=== PATIENT | female | born 1940 | race Two or more races ===

== ENCOUNTER → 2021-05-12 18:45 | Outpatient (CLI) | payer MEDICARE ==
[2021-05-12 19:21] LABS: EOSINOPHILS 9.5 % (0-7); HEMATOCRIT 34.1 % (36.0-48.0); HEMOGLOBIN 10.1 g/dL (12-16); MCH 25.2 pg (26.0-34.0); MCHC 29.6 g/dL (31.0-37.0); MCV 85.2 fL (80.0-100.0); MEAN PLATELET VOLUME 8.4 fL (7.4-10.4); MONOCYTES 5.9 % (2-11); NEUTROPHILS 63.6 % (40-80); PLATELET COUNT 390 10x3/uL (130-400); RDW 18.8 % (11.5-14.5)
[2021-05-12 19:48] LABS: ALBUMIN 2.3 g/dL (3.4-5.0); ANION GAP 12.3 mmol/L (8-16); BILIRUBIN - TOTAL 0.1 mg/dL (0.2-1.3); CALCIUM 8.1 mg/dL (8.5-10.1); CARBON DIOXIDE 29.4 mmol/L (21.0-32.0); CHOL - HDL RATIO 4.1 ratio (2.3-4.1); CREATININE - SERUM 0.8 mg/dL (0.6-1.3); LDL-HDL RATIO 2.5 ratio (1.5-3.5); POTASSIUM - SERUM 5.7 mmol/L (3.5-5.1); PROTEIN - SERUM 5.6 g/dL (6.4-8.2)
== END | disposition home or self-care (01) ==
LOC: D.LABREF 18:45
PROVIDERS: ATTEND Family Medicine
DX: J44.9 Chronic obstructive pulmonary disease, unspecified (principal); Z48.816 Encounter for surgical aftercare following surgery on the genitourinary system; N17.9 Acute kidney failure, unspecified

== ENCOUNTER → 2021-05-19 18:00 | Outpatient (CLI) | payer MEDICARE ==
[2021-05-19 18:30] LABS: BASOPHILS 0.9 % (0-2); EOSINOPHILS 10.1 % (0-7); HEMATOCRIT 36.2 % (36.0-48.0); HEMOGLOBIN 10.9 g/dL (12-16); LYMPHOCYTES 14.4 % (15-50); MCH 25.3 pg (26.0-34.0); MCHC 30.2 g/dL (31.0-37.0); MCV 83.9 fL (80.0-100.0); MEAN PLATELET VOLUME 8.8 fL (7.4-10.4); MONOCYTES 3.6 % (2-11); PLATELET COUNT 430 10x3/uL (130-400); RBC 4.32 10x6/uL (4.00-5.40); RDW 18.8 % (11.5-14.5); WBC 13.3 10x3/uL (4.8-10.8)
[2021-05-19 19:04] LABS: ALBUMIN 2.9 g/dL (3.4-5.0); ANION GAP 12.3 mmol/L (8-16); BILIRUBIN - TOTAL 0.29 mg/dL (0.2-1.3); CARBON DIOXIDE 31.3 mmol/L (21.0-32.0); CHOL - HDL RATIO 4.9 ratio (2.3-4.1); CREATININE - SERUM 0.9 mg/dL (0.6-1.3); LDL-HDL RATIO 3.2 ratio (1.5-3.5); POTASSIUM - SERUM 5.6 mmol/L (3.5-5.1); PROTEIN - SERUM 6.3 g/dL (6.4-8.2)
== END | disposition home or self-care (01) ==
LOC: D.LABREF 18:00
PROVIDERS: ATTEND Family Medicine
DX: J44.9 Chronic obstructive pulmonary disease, unspecified (principal); Z48.816 Encounter for surgical aftercare following surgery on the genitourinary system; N17.9 Acute kidney failure, unspecified